=== PATIENT | female | born 1965 | race African-American/Black ===

== ENCOUNTER 2020-08-23 02:45 | Emergency (ER) | payer MEDICAID ==
[~2020-08-23] VITALS: Ht 149.9 cm; Wt 76.2 kg
--- NOTE | 2020-08-23 03:40 | NUR ---
bibs for c/o ongoing cough. pt was seen at an urgent care 10 days ago. work up done w. -cxr, covid and flu. finished a dose of z pack for broncitis. no sob. no fever.
[2020-08-23] MEDS ORDERED: ONDANSETRON 4 MG TAB.RAPDIS SL ONE (04:00)
[2020-08-23] MEDS ORDERED: ONDANSETRON 4 MG TAB.RAPDIS ONE (04:12)
[2020-08-23] MEDS ORDERED: METH4TAB3 PO (05:42)
[2020-08-23] MEDS ORDERED: CETI-90 PO (05:42)
[2020-08-23] MEDS ORDERED: BENZ-13 PO (05:42)
[2020-08-23] MEDS ORDERED: PROM473S7 PO (05:56)
[2020-08-23] MEDS ORDERED: PROM6.2516 GT (05:57)
--- NOTE | 2020-08-23 06:23 | NUR ---
pt is medically stable for d/c . Patient discharged to home in stable condition. Rx and Written and verbal after care instructions given. Patient verbalizes understanding of instruction.
[2020-08-23 06:26] VITALS: BP 119/77
== END 2020-08-23 06:28 | disposition home or self-care (01) ==
LOC: ER 02:49
DX: R05 Cough (principal); Z88.8 Allergy status to other drugs, medicaments and biological substances; Z60.2 Problems related to living alone; Z79.899 Other long term (current) drug therapy
CPT/HCPCS: 71045; 99283; Q0162